=== PATIENT | female | born 1935 | race Caucasian/White ===

== ENCOUNTER 2025-02-13 07:10 | Outpatient (REF) | payer SELFPAY ==
[2025-02-13 07:13] LABS: MANUAL DIFF FLAG NO
[2025-02-13 07:47] LABS: Hematocrit 32.4 % (37.0-47.0); Hemoglobin 10.5 g/dl (12.0-16.0); Imm Gran Abs Auto 0.03 X10*3/uL (0.00-0.03); Imm Gran Pct Auto 0.3 % (0.0-0.4); Lymphocytes Absolute Auto 1.2 X10*3/uL (1.2-4.9); Mean Corpuscular HGB Conc 32.4 g/dl (31.0-35.0); Mean Corpuscular Hemoglobin 29.2 pg (27.0-33.0); Mean Corpuscular Volume 90.0 fL (80.0-98.0); NRBC Abs Auto 0.000 X10*3/uL (0.0-0.012); NRBC Pct Auto 0.0 /100WBC (0.0-0.2); Platelet Count 358 X10*3/uL (160-400); Red Blood Count 3.60 X10*6/uL (4.20-5.50); White Blood Count 9.6 X10*3/uL (4.8-10.8)
[2025-02-13 08:00] LABS: Alanine Aminotransferase 13 U/L (0-31); Albumin Level 3.2 g/dL (3.5-5.0); Alkaline Phosphatase 81 U/L (39-117); Anion Gap 11 (12-20); Aspartate Amino Transferase 25 U/L (5-31); Blood Urea Nitrogen 18 mg/dL (9-16); Calcium 9.0 mg/dL (8.4-10.2); Carbon Dioxide 25 mmol/L (22-29); Chloride 106 mmol/L (96-108); Estimated Glomerular Filt Rate > 60; Potassium 3.9 mmol/L (3.3-5.1); Sodium 138 mmol/L (135-145); Total Protein 7.0 g/dL (6.5-8.0)
--- OUTSIDE RECORDS SUMMARY | 2025-02-13 08:52 | XMS_ITS | Encounter Summary ---
Author Organization [employer] Address [address] [place] [address] Care Team Providers Care Supervisor [employer] Name Role Phone Gio Schaefer MD Primary Care Provider +1- [phone] Encounter Details Date Type Department Care Team (Late st Contact Info) Description 01/05/2025 Lab Requisition [facility] - Main Lab [address] [facility] [place] [address] Gio Schaefer MD [address] [place] [address] Essential (primary) hypertension Social History Tobacco Use Types Packs/Day Years Used Date Smoking Tobacco: Never Assessed Comments Unknown Sex and Gender Information Value Date Recorded Sex Assigned at Not on file Legal Sex Female 8:41 PM EST Gender Identity Not on file Sexual Orientation Not on file documented as of this encounter Plan of Treatment Not on file documented as of this encounter Visit Diagnoses Diagnosis Essential (primary) hypertension Unspecified essential hypertension documented in this encounter Care Teams Supervisor [employer] Relationship Specialty Start Date End Date Gio Schaefer MD [address] [place] [address] PCP - General Internal Medicine 12/21/24 documented as of this encounter
--- OUTSIDE RECORDS SUMMARY | 2025-02-13 08:53 | XMS_ITS | Encounter Summary ---
Author Organization [employer] [facility] Address [address] [place] [address] Care Team Providers Care Coil Connector Repairer Name Role Phone Gio Schaefer MD Primary Care Provider +1- [phone] Encounter Details Date Type Department Care Team (Late st Contact Info) Description 12/21/2024 Lab Requisition [facility] - Main Lab [address] [place] [address] Gio Schaefer MD [address] [place] [address] Essential (primary) hypertension Social History Tobacco Use Types Packs/Day Years Used Date Smoking Tobacco: Never Assessed Comments Unknown Sex and Gender Information Value Date Recorded Sex Assigned at Not on file Legal Sex Female 8:41 PM EST Gender Identity Not on file Sexual Orientation Not on file documented as of this encounter Plan of Treatment Not on file documented as of this encounter Procedures Procedure Name Priority Date/Time Associated Diagnosis Comments COMPLETE BLOOD COUNT Routine 12/21/2024 5:21 AM EST Essential (primary) hypertension COMPREHENSIVE METABOLIC PANEL Routine 12/21/2024 5:21 AM EST Essential (primary) hypertension documented in this encounter Results * (ABNORMAL) Comprehensive metabolic panel (12/21/2024 5:21 AM EST) Sodium 138 133 - 145 mmol/L LAB CHEMISTRY METHOD 12/21/2024 10:48 AM EST [facility] LAB Potassium 4.5 3.5 - 5.5 mmol/L LAB CHEMISTRY METHOD 12/21/2024 10:48 AM EST [facility] LAB Chloride 103 96 - 110 mmol/L LAB CHEMISTRY METHOD 12/21/2024 10:48 AM [facility] LAB CO2 30 21 - 32 mmol/L LAB CHEMISTRY METHOD 12/21/2024 10:48 AM [facility] LAB Anion Gap 5 3 - 11 LAB CHEMISTRY METHOD 12/21/2024 10:48 AM [facility] LAB Glucose 76 70 - 100 mg/dL LAB CHEMISTRY METHOD 12/21/2024 10:48 AM [facility] LAB BUN 19 5 - 25 mg/dL LAB CHEMISTRY METHOD 12/21/2024 10:48 AM [facility] LAB Creatinine 0.75 0.50 - 1.10 mg/dL LAB CHEMISTRY METHOD 12/21/2024 10:48 AM [facility] LAB eGFR 78 >=60 mL/min/1. 73m2 LAB CHEMISTRY METHOD 12/21/2024 10:48 AM [facility] LAB Comment:Calculation based on the Chronic Kidney Disease Epidemiology Collaboration (CKD-EPI) equation refit without adjustment for race. BUN/Creatinine Ratio 25.3 LAB CHEMISTRY METHOD 12/21/2024 10:48 AM [facility] LAB Calcium 9.0 8.5 - 10.5 mg/dL LAB CHEMISTRY METHOD 12/21/2024 10:48 AM [facility] LAB AST (SGOT) 21 10 - 42 unit/L LAB CHEMISTRY METHOD 12/21/2024 10:48 AM [facility] LAB ALT (SGPT) 20 10 - 60 unit/L LAB CHEMISTRY METHOD 12/21/2024 10:48 AM [facility] LAB Alkaline Phosphatase 92 42 - 121 unit/L LAB CHEMISTRY METHOD 12/21/2024 10:48 AM [facility] LAB Total Protein 6.5 6.0 - 8.0 g/dL LAB CHEMISTRY METHOD 12/21/2024 10:48 AM [facility] LAB Albumin 2.7(L) 3.2 - 5.0 g/dL LAB CHEMISTRY METHOD 12/21/2024 10:48 AM [facility] LAB Total Bilirubin 0.5 0.0 - 1.4 mg/dL LAB CHEMISTRY METHOD 12/21/2024 10:48 AM [facility] LAB Blood Venous blood specimen / Unknown Venipuncture / Unknown 12/21/2024 5:21 AM EST 12/21/2024 9:21 AM EST us Gio Schaefer MD LAB BLOOD ORDERABLES Final Result [facility] LAB [address] [place] [address], [place] [phone] * (ABNORMAL) Complete blood count (12/21/2024 5:21 AM EST) WBC 8.6 4.8 - 10.8 K/mcL LAB HEMETOLOGY METHOD 12/21/2024 10:09 AM [facility] LAB RBC 3.00(L) 3.80 - 4.80 M/mcL LAB HEMETOLOGY METHOD 12/21/2024 10:09 AM [facility] LAB Hemoglobin 9.0(L) 11.5 - 16.0 g/dL LAB HEMETOLOGY METHOD 12/21/2024 10:09 AM [facility] LAB Hematocrit 28.0(L) 35.0 - 47.0 % LAB HEMETOLOGY METHOD 12/21/2024 10:09 AM [facility] LAB MCV 94.0 79.0 - 98.0 FL LAB HEMETOLOGY METHOD 12/21/2024 10:09 AM [facility] LAB MCH 30.2 27.0 - 32.0 pcg LAB HEMETOLOGY METHOD 12/21/2024 10:09 AM [facility] LAB MCHC 32.1 32.0 - 37.0 g/dL LAB HEMETOLOGY METHOD 12/21/2024 10:09 AM [facility] LAB RDW 15.5(H) 11.0 - 15.0 % LAB HEMETOLOGY METHOD 12/21/2024 10:09 AM EST [facility] LAB Platelets 392 130 - 400 K/mcL LAB HEMETOLOGY METHOD 12/21/2024 10:09 AM [facility] LAB MPV 10.1 7.0 - 11.0 FL LAB HEMETOLOGY METHOD 12/21/2024 10:09 AM EST [facility] LAB NRBC 0.0 <1.0 % LAB HEMETOLOGY METHOD 12/21/2024 10:09 AM [facility] LAB NRBC Absolute 0.00 <0.10 K/mcL LAB HEMETOLOGY METHOD 12/21/2024 10:09 AM [facility] LAB Blood Venous blood specimen / Unknown Venipuncture / Unknown 12/21/2024 5:21 AM EST 12/21/2024 9:21 AM EST us Gio Schaefer MD LAB BLOOD ORDERABLES Final Result [facility] LAB [address] [place] [address], documented in this encounter Visit Diagnoses Diagnosis Essential (primary) hypertension Unspecified essential hypertension documented in this encounter Care Teams Coil Connector Repairer Relationship Specialty Start Date End Date Gio Schaefer MD [address] [place] [id number] PCP - General Internal Medicine 12/21/24 documented as of this encounter
--- OUTSIDE RECORDS SUMMARY | 2025-02-13 08:53 | XMS_ITS | Clinical Summary ---
Author Organization [address] [facility] Address [address] [place] [address] Phone Care Team Providers Care Nursing Informatics Clinical Analyst Name Role Phone Gio Schaefer MD Primary Care Provider +1- [phone] Encounters Date Type Department Care Team Description 01/05/2025 Lab Requisition [facility] Lab [address] [place] [phone] Gio Schaefer MD Essential (primary) hypertension 12/30/2024 Lab Requisition [facility] Lab [address] [place] [phone] Gio Schaefer MD Essential (primary) hypertension 2024 Lab Requisition [facility] Lab [address] [place] [phone] Gio Schaefer MD Essential (primary) hypertension 12/21/2024 Lab Requisition [facility] Lab [address] [place] [phone] Gio Schaefer MD Essential (primary) hypertension from Last 3 Months Social History Tobacco Use Types Packs/Day Years Used Date Smoking Tobacco: Never Assessed Comments Unknown Sex and Gender Information Value Date Recorded Sex Assigned at Not on file Legal Sex Female 8:41 PM EST Gender Identity Not on file Sexual Orientation Not on file Plan of Treatment Health Maintenance Due Date Last Done Comments DTaP,Tdap,and Td Vaccines (1 - Tdap) 1954 Pneumococcal Vaccine: 50+ Years (1 of 1 - PCV) 12/24/1987 Zoster Vaccines (1 of 2) 12/24/1987 RSV Immunization Adult Patients (1 - 1-dose 75+ series) 2012 Cholesterol Screening (Lipid Panel) 03/12/2023 Falls Risk Assessment 03/12/2023 Medicare Annual Wellness Visit 03/12/2023 Osteoporosis Screening (Bone Density Screening) 03/12/2023 Social Influencers of Health Screening 03/12/2023 Depression Screening 02/16/2024 COVID-19 Vaccine (1 - 2024-2 6 season) 2024 Influenza Vaccine (#1) 2024 Hypertension/CHF/CAD Annual BMP Blood Test 01/01/2026 01/01/2025, 12/25/2024, 12/21/2024 HIB Vaccines Aged Out No longer eligi ble based on patient's age to complete this topic HPV Vaccines Aged Out No longer eligi ble based on patient's age to complete this topic Hepatitis A Vaccines Aged Out No long er eligible based on patient's age to complete this topic Hepatitis B Vaccines Aged Out No long er eligible based on patient's age to complete this topic IPV Vaccines Aged Out No longer eligi ble based on patient's age to complete this topic MMR Vaccines Aged Out No longer eligi ble based on patient's age to complete this topic Meningococcal ACWY Vaccine Aged Out N o longer eligible based on patient's age to complete this topic Meningococcal B Vaccine Aged Out No l onger eligible based on patient's age to complete this topic RSV Immunization Patients Under 20 months Aged Out No longer eligible b ased on patient's age to complete this topic Varicella Vaccines Aged Out No longer eligible based on patient's age to complete this topic Procedures Procedure Name Priority Date/Time Associated Diagnosis Comments BASIC METABOLIC PANEL Routine 01/01/2025 5:36 AM EST Essential (primary) hypertension COMPLETE BLOOD COUNT Routine 01/01/2025 5:36 AM EST Essential (primary) hypertension BASIC METABOLIC PANEL Routine 12/25/2024 5:13 AM EST Essential (primary) hypertension COMPLETE BLOOD COUNT Routine 12/25/2024 5:13 AM EST Essential (primary) hypertension COMPREHENSIVE METABOLIC PANEL Routine 12/21/2024 5:21 AM EST Essential (primary) hypertension COMPLETE BLOOD COUNT Routine 12/21/2024 5:21 AM EST Essential (primary) hypertension from Last 3 Months Results * (ABNORMAL) Complete blood count (01/01/2025 5:36 AM EST) Only the most recent of3 resultswithin the time period is included. [facility] Signature WBC 7.6 4.8 - 10.8 K/mcL LAB HEMETOLOGY METHOD 01/01/2025 11:52 AM [facility] LAB RBC 3.20(L) 3.80 - 4.80 M/mcL LAB HEMETOLOGY METHOD 01/01/2025 11:52 AM [facility] LAB Hemoglobin 9.7(L) 11.5 - 16.0 g/dL LAB HEMETOLOGY METHOD 01/01/2025 11:52 AM [facility] LAB Hematocrit 30.2(L) 35.0 - 47.0 % LAB HEMETOLOGY METHOD 01/01/2025 11:52 AM [facility] LAB MCV 94.7 79.0 - 98.0 FL LAB HEMETOLOGY METHOD 01/01/2025 11:52 AM [facility] LAB MCH 30.4 27.0 - 32.0 pcg LAB HEMETOLOGY METHOD 01/01/2025 11:52 AM [facility] LAB MCHC 32.1 32.0 - 37.0 g/dL LAB HEMETOLOGY METHOD 01/01/2025 11:52 AM [facility] LAB RDW 16.1(H) 11.0 - 15.0 % LAB HEMETOLOGY METHOD 01/01/2025 11:52 AM [facility] LAB Platelets 416(H) 130 - 400 K/mcL LAB HEMETOLOGY METHOD 01/01/2025 11:52 AM [facility] LAB MPV 9.5 7.0 - 11.0 FL LAB HEMETOLOGY METHOD 01/01/2025 11:52 AM [facility] LAB NRBC 0.0 <1.0 % LAB HEMETOLOGY METHOD 01/01/2025 11:52 AM EST [facility] LAB NRBC Absolute 0.00 <0.10 K/mcL LAB HEMETOLOGY METHOD 01/01/2025 11:52 AM EST [facility] LAB Blood Venous blood specimen / Unknown Venipuncture / Unknown 01/01/2025 5:36 AM EST 01/01/2025 11:08 AM EST us Gio Schaefer MD LAB BLOOD ORDERABLES Final Result [facility] LAB [address] [place] [address], [place] [phone] * (ABNORMAL) Basic metabolic panel (01/01/2025 5:36 AM EST) Only the most recent of2 resultswithin the time period is included. Sodium 142 133 - 145 mmol/L LAB CHEMISTRY METHOD 01/01/2025 1:24 PM [facility] LAB Potassium 4.0 3.5 - 5.5 mmol/L LAB CHEMISTRY METHOD 01/01/2025 1:24 PM [facility] LAB Chloride 107 96 - 110 mmol/L LAB CHEMISTRY METHOD 01/01/2025 1:24 PM [facility] LAB CO2 28 21 - 32 mmol/L LAB CHEMISTRY METHOD 01/01/2025 1:24 PM [facility] LAB Anion Gap 7 3 - 11 LAB CHEMISTRY METHOD 01/01/2025 1:24 PM [facility] LAB Glucose 65(L) 70 - 100 mg/dL LAB CHEMISTRY METHOD 01/01/2025 1:24 PM [facility] LAB BUN 26(H) 5 - 25 mg/dL LAB CHEMISTRY METHOD 01/01/2025 1:24 PM [facility] LAB Creatinine 0.84 0.50 - 1.10 mg/dL LAB CHEMISTRY METHOD 01/01/2025 1:24 PM EST [facility] LAB eGFR 67 >=60 mL/min/1. 73m2 LAB CHEMISTRY METHOD 01/01/2025 1:24 PM EST [facility] LAB Comment:Calculation based on the Chronic Kidney Disease Epidemiology Collaboration (CKD-EPI) equation refit without adjustment for race. BUN/Creatinine Ratio 31.0 LAB CHEMISTRY METHOD 01/01/2025 1:24 PM EST [facility] LAB Calcium 8.6 8.5 - 10.5 mg/dL LAB CHEMISTRY METHOD 01/01/2025 1:24 PM [facility] LAB Blood Venous blood specimen / Unknown Venipuncture / Unknown 01/01/2025 5:36 AM EST 01/01/2025 11:08 AM EST us Gio Schaefer MD LAB BLOOD ORDERABLES Final Result [facility] LAB [address] [place] [address], [place] [phone] * (ABNORMAL) Comprehensive metabolic panel (12/21/2024 5:21 AM EST) Sodium 138 133 - 145 mmol/L LAB CHEMISTRY METHOD 12/21/2024 10:48 AM [facility] LAB Potassium 4.5 3.5 - 5.5 mmol/L LAB CHEMISTRY METHOD 12/21/2024 10:48 AM [facility] LAB Chloride 103 96 - 110 mmol/L LAB CHEMISTRY METHOD 12/21/2024 10:48 AM [facility] LAB CO2 30 21 - 32 mmol/L LAB CHEMISTRY METHOD 12/21/2024 10:48 AM [facility] LAB Anion Gap 5 3 - 11 LAB CHEMISTRY METHOD 12/21/2024 10:48 AM [facility] LAB Glucose 76 70 - 100 mg/dL LAB CHEMISTRY METHOD 12/21/2024 10:48 AM [facility] LAB BUN 19 5 - 25 mg/dL LAB CHEMISTRY METHOD 12/21/2024 10:48 AM [facility] LAB Creatinine 0.75 0.50 - 1.10 mg/dL LAB CHEMISTRY METHOD 12/21/2024 10:48 AM [facility] LAB eGFR 78 >=60 mL/min/1. 73m2 LAB CHEMISTRY METHOD 12/21/2024 10:48 AM [facility] LAB Comment:Calculation based on the Chronic Kidney Disease Epidemiology Collaboration (CKD-EPI) equation refit without adjustment for race. BUN/Creatinine Ratio 25.3 LAB CHEMISTRY METHOD 12/21/2024 10:48 AM [facility] LAB Calcium 9.0 8.5 - 10.5 mg/dL LAB CHEMISTRY METHOD 12/21/2024 10:48 AM [facility] LAB AST (SGOT) 21 10 - 42 unit/L LAB CHEMISTRY METHOD 12/21/2024 10:48 AM [facility] LAB ALT (SGPT) 20 10 - 60 unit/L LAB CHEMISTRY METHOD 12/21/2024 10:48 AM [facility] LAB Alkaline Phosphatase 92 42 - 121 unit/L LAB CHEMISTRY METHOD 12/21/2024 10:48 AM [facility] LAB Total Protein 6.5 6.0 - 8.0 g/dL LAB CHEMISTRY METHOD 12/21/2024 10:48 AM [facility] LAB Albumin 2.7(L) 3.2 - 5.0 g/dL LAB CHEMISTRY METHOD 12/21/2024 10:48 AM [facility] LAB Total Bilirubin 0.5 0.0 - 1.4 mg/dL LAB CHEMISTRY METHOD 12/21/2024 10:48 AM [facility] LAB Blood Venous blood specimen / Unknown Venipuncture / Unknown 12/21/2024 5:21 AM EST 12/21/2024 9:21 AM EST us Gio Schaefer MD LAB BLOOD ORDERABLES Final Result [facility] LAB [address] [place] [address], from Last 3 Months Insurance MEDICARE Care Teams Nursing Informatics Clinical Analyst Relationship Specialty Start Date End Date Gio Schaefer MD [address] [place] [id number] PCP - General Internal Medicine 12/21/24
--- OUTSIDE RECORDS SUMMARY | 2025-02-13 08:53 | XMS_ITS | Encounter Summary ---
Author Organization [facility] Address [address] [place] [address] Care Team Providers Care Podiatric Physician Name Role Phone Gio Schaefer MD Primary Care Provider +1- [phone] Encounter Details Date Type Department Care Team (Late st Contact Info) Description 12/30/[address] [facility] - Main Lab [address] [place] [address] Gio Schaefer MD [address] [place] [address] Essential (primary) hypertension Social History Tobacco Use [...] Associated Diagnosis Comments COMPLETE BLOOD COUNT Routine 01/01/2025 5:36 AM EST Essential (primary) hypertension BASIC METABOLIC PANEL Routine 01/01/2025 5:36 AM EST Essential (primary) hypertension documented in this encounter Results * (ABNORMAL) Basic metabolic panel (01/01/2025 5:36 AM EST) Sodium 142 133 - 145 mmol/L LAB CHEMISTRY METHOD 01/01/2025 1:24 PM EST [facility] LAB Potassium 4.0 3.5 - 5.5 mmol/L LAB CHEMISTRY METHOD 01/01/2025 1:24 PM EST [facility] LAB Chloride 107 96 - 110 mmol/L LAB CHEMISTRY METHOD 01/01/2025 1:24 PM [facility] LAB CO2 28 21 - 32 mmol/L LAB CHEMISTRY METHOD 01/01/2025 1:24 PM [facility] LAB Anion Gap 7 3 - 11 LAB CHEMISTRY METHOD 01/01/2025 1:24 PM [facility] LAB Glucose 65(L) 70 - 100 mg/dL LAB CHEMISTRY METHOD 01/01/2025 1:24 PM [facility] BUN 26(H) 5 - 25 mg/dL LAB CHEMISTRY METHOD 01/01/2025 1:24 PM [facility] LAB Creatinine 0.84 0.50 - 1.10 mg/dL LAB CHEMISTRY METHOD 01/01/2025 1:24 PM [facility] LAB eGFR 67 >=60 mL/min/1. 73m2 LAB CHEMISTRY METHOD 01/01/2025 1:24 PM [facility] LAB Comment:Calculation based on the Chronic Kidney Disease Epidemiology Collaboration (CKD-EPI) equation refit without adjustment for race. BUN/Creatinine Ratio 31.0 LAB CHEMISTRY METHOD 01/01/2025 1:24 PM [facility] LAB Calcium 8.6 8.5 - 10.5 mg/dL LAB CHEMISTRY METHOD 01/01/2025 1:24 PM [facility] LAB Blood Venous blood specimen / Unknown Venipuncture / Unknown 01/01/2025 5:36 AM EST 01/01/2025 11:08 AM EST us Gio Schaefer MD LAB BLOOD ORDERABLES Final Result [facility] LAB [address] [place] [address], * (ABNORMAL) Complete blood count (01/01/2025 5:36 AM EST) WBC 7.6 4.8 - 10.8 K/mcL LAB HEMETOLOGY METHOD 01/01/2025 11:52 AM [facility] LAB RBC 3.20(L) 3.80 - 4.80 M/mcL LAB HEMETOLOGY METHOD 01/01/2025 11:52 AM [facility] LAB Hemoglobin 9.7(L) 11.5 - 16.0 g/dL LAB HEMETOLOGY METHOD 01/01/2025 11:52 AM [facility] LAB Hematocrit 30.2(L) 35.0 - 47.0 % LAB HEMETOLOGY METHOD 01/01/2025 11:52 AM [facility] LAB MCV 94.7 79.0 - 98.0 FL LAB HEMETOLOGY METHOD 01/01/2025 11:52 AM [facility] LAB MCH 30.4 27.0 - 32.0 pcg LAB HEMETOLOGY METHOD 01/01/2025 11:52 AM [facility] LAB MCHC 32.1 32.0 - 37.0 g/dL LAB HEMETOLOGY METHOD 01/01/2025 11:52 AM [facility] LAB RDW 16.1(H) 11.0 - 15.0 % LAB HEMETOLOGY METHOD 01/01/2025 11:52 AM [facility] LAB Platelets 416(H) 130 - 400 K/mcL LAB HEMETOLOGY METHOD 01/01/2025 11:52 AM [facility] LAB MPV 9.5 7.0 - 11.0 FL LAB HEMETOLOGY METHOD 01/01/2025 11:52 AM [facility] LAB NRBC 0.0 <1.0 % LAB HEMETOLOGY METHOD 01/01/2025 11:52 AM [facility] LAB NRBC Absolute 0.00 <0.10 K/mcL LAB HEMETOLOGY METHOD 01/01/2025 11:52 AM [facility] LAB Blood Venous blood specimen / Unknown Venipuncture / Unknown 01/01/2025 5:36 AM EST 01/01/2025 11:08 AM EST us Gio Schaefer MD LAB BLOOD ORDERABLES [facility] LAB [address] [place] [address], documented in this encounter Visit Diagnoses Diagnosis Essential (primary) hypertension Unspecified essential hypertension documented in this encounter Care Teams Podiatric Physician Relationship Specialty Start Date End Date Gio Schaefer MD [address] [place] [id number] PCP - General Internal Medicine 12/21/24 documented as of this encounter
--- OUTSIDE RECORDS SUMMARY | 2025-02-13 08:53 | XMS_ITS | Encounter Summary ---
Author Organization [facility] Address [address] [place] [address] Care Team Providers Care Towel Cabinet Repairer Name Role Phone Gio Schaefer MD Primary Care Provider [phone] Encounter Details Date Type Department Care Team (Late st Contact Info) Description 2024 Lab Requisition [facility] - Main Lab [address] [place] [address] Gio Schaefer MD [address] [place] [address] Essential (primary) hypertension Social History Tobacco Use [...] Associated Diagnosis Comments COMPLETE BLOOD COUNT Routine 12/25/2024 5:13 AM EST Essential (primary) hypertension BASIC METABOLIC PANEL Routine 12/25/2024 5:13 AM EST Essential (primary) hypertension documented in this encounter Results * (ABNORMAL) Basic metabolic panel (12/25/2024 5:13 AM EST) Sodium 142 133 - 145 mmol/L LAB CHEMISTRY METHOD 12/25/2024 11:05 AM EST [facility] Potassium 4.0 3.5 - 5.5 mmol/L LAB CHEMISTRY METHOD 12/25/2024 11:05 AM [facility] Chloride 106 96 - 110 mmol/L LAB CHEMISTRY METHOD 12/25/2024 11:05 AM [facility] CO2 30 21 - 32 mmol/L LAB CHEMISTRY METHOD 12/25/2024 11:05 AM [facility] Anion Gap 6 3 - 11 LAB CHEMISTRY METHOD 12/25/2024 11:05 AM [facility] Glucose 69(L) 70 - 100 mg/dL LAB CHEMISTRY METHOD 12/25/2024 11:05 AM [facility] BUN 26(H) 5 - 25 mg/dL LAB CHEMISTRY METHOD 12/25/2024 11:05 AM [facility] Creatinine 0.88 0.50 - 1.10 mg/dL LAB CHEMISTRY METHOD 12/25/2024 11:05 AM [facility] eGFR 64 >=60 mL/min/1. 73m2 LAB CHEMISTRY METHOD 12/25/2024 11:05 AM [facility] Comment:Calculation based on the Chronic Kidney Disease Epidemiology Collaboration (CKD-EPI) equation refit without adjustment for race. BUN/Creatinine Ratio 29.5 LAB CHEMISTRY METHOD 12/25/2024 11:05 AM [facility] Calcium 8.7 8.5 - 10.5 mg/dL LAB CHEMISTRY METHOD 12/25/2024 11:05 AM [facility] Blood Venous blood specimen / Unknown Venipuncture / Unknown 12/25/2024 5:13 AM EST 12/25/2024 10:08 AM EST us Gio Schaefer MD LAB BLOOD ORDERABLES Final Result [facility] [address] [place] [address], * (ABNORMAL) Complete blood count (12/25/2024 5:13 AM EST) WBC 6.7 4.8 - 10.8 K/mcL LAB HEMETOLOGY METHOD 12/25/2024 10:21 AM [facility] RBC 3.00(L) 3.80 - 4.80 M/mcL LAB HEMETOLOGY METHOD 12/25/2024 10:21 AM [facility] Hemoglobin 8.7(L) 11.5 - 16.0 g/dL LAB HEMETOLOGY METHOD 12/25/2024 10:21 AM [facility] Hematocrit 28.7(L) 35.0 - 47.0 % LAB HEMETOLOGY METHOD 12/25/2024 10:21 AM [facility] MCV 96.3 79.0 - 98.0 FL LAB HEMETOLOGY METHOD 12/25/2024 10:21 AM [facility] MCH 29.2 27.0 - 32.0 pcg LAB HEMETOLOGY METHOD 12/25/2024 10:21 AM [facility] MCHC 30.3(L) 32.0 - 37.0 g/dL LAB HEMETOLOGY METHOD 12/25/2024 10:21 AM [facility] RDW 15.9(H) 11.0 - 15.0 % LAB HEMETOLOGY METHOD 12/25/2024 10:21 AM [facility] Platelets 453(H) 130 - 400 K/mcL LAB HEMETOLOGY METHOD 12/25/2024 10:21 AM [facility] MPV 9.6 7.0 - 11.0 FL LAB HEMETOLOGY METHOD 12/25/2024 10:21 AM [facility] NRBC 0.0 <1.0 % LAB HEMETOLOGY METHOD 12/25/2024 10:21 AM [facility] NRBC Absolute 0.00 <0.10 K/mcL LAB HEMETOLOGY METHOD 12/25/2024 10:21 AM [facility] Blood Venous blood specimen / Unknown Venipuncture / Unknown 12/25/2024 5:13 AM EST 12/25/2024 10:08 AM EST us Gio Schaefer MD LAB BLOOD ORDERABLES Final [facility] [address] [place] [address], documented in this encounter Visit Diagnoses Diagnosis Essential (primary) hypertension Unspecified essential hypertension documented in this encounter Care Teams Towel Cabinet Repairer Relationship Specialty Start Date End Date Gio Schaefer MD [address] [place] [id number] PCP - General Internal Medicine 12/21/24 documented as of this encounter
== END 2025-02-13 07:11 | disposition home or self-care (01) ==
LOC: HO.MMNH1L 07:10
PROVIDERS: Visit Provider Physician Assistant Medical
DX: I10 Essential (primary) hypertension (principal); M19.90 Unspecified osteoarthritis, unspecified site; F13.239 Sedative, hypnotic or anxiolytic dependence with withdrawal, unspecified; Z13.1 Encounter for screening for diabetes mellitus
CPT/HCPCS: 36415; 80053; 83036; 85025